=== PATIENT | male | born 1975 | race Caucasian/White ===

== ENCOUNTER 2023-05-26 20:50 | Emergency (ER) | payer OTHER ==
[2023-05-26] MEDS ORDERED: Lidocaine 1% (PF) 30 ML VIAL ONE (21:38)
[2023-05-26] MEDS ORDERED: HYDROcodone/Acetaminophen 10/325 mg Tablet ONE (21:38)
[2023-05-26] MEDS ORDERED: Boostrix 0.5 ML (Tdap) VIAL (>/=7 yrs of age) ONE (21:39)
[2023-05-26] MEDS ORDERED: Amoxicillin/Potassium Clav 875 MG TAB ONE (22:01)
[2023-05-26] MEDS ORDERED: Bacitracin 1 PK ONE (22:02)
== END 2023-05-26 23:31 | disposition home or self-care (01) ==
LOC: MADERS 20:50
DX: S61.215A Laceration without foreign body of left ring finger without damage to nail, initial encounter (principal); S61.452A Open bite of left hand, initial encounter; Y04.1XXA Assault by human bite, initial encounter
CPT/HCPCS: 12042; 90471; 90715; J2001